=== PATIENT | male | born 1960 | race Caucasian/White ===

== ENCOUNTER 2020-03-04 00:25 | Outpatient (CLI) | payer OTHER, SELFPAY ==
[2020-03-04 22:35] LABS: SARS-CoV-2 RNA PCR Negative
== END 2020-03-04 00:26 | disposition home or self-care (01) ==
LOC: ANHCOVIDDT 00:25
PROVIDERS: PCP Family Medicine; Visit Provider Internal Medicine Gastroenterology
DX: Z01.818 Encounter for other preprocedural examination (principal); Z11.59 Encounter for screening for other viral diseases
CPT/HCPCS: 87635; C9803; U0003

== ENCOUNTER 2020-03-06 01:17 | Day surgery (SDC) | payer OTHER, SELFPAY ==
[2020-03-03 10:27] VITALS: BMI 31.7
[2020-03-06 12:29] VITALS: BP 128/88; PULSE 66; RESP 18; TEMP 36.1; O2SAT 98; BMI 32.6
--- NOTE | 2020-03-06 12:32 | SUR.PREOP ---
Pt ate lunch and dinner yesterday. Pt drank 2L [place] last night and 2L this am form [id number]. Dr. Malcolm notified as well as anesthesia Dr. Parra. Ok to procede with colonoscopy.
--- NOTE | 2020-03-06 12:35 | WPDANESEPPF ---
Anes - Initial Pre Proc Eval Procedure: Operation Date: 03/06/20 13:30 Proposed Procedures p Screening Colonoscopy - Ulises Juan MD Date/Time: 03/06/20 12:35 Surgeon: Ulises Juan MD Pre Op Diagnosis: Neoplasm Screening Patient Data Age: 59 Gender: M Height: 6 ft Weight: 109.3 kg Last Vital Signs Temp 36.1 C L 03/06/20 12:29 Pulse 66 03/06/20 12:29 Resp 18 03/06/20 12:29 BP 128/88 03/06/20 12:29 Pulse Ox 98 03/06/20 12:29 Allergies Allergy/AdvReac Type Severity Reaction Status Date / Time No Known Allergies Allergy Mild Verified 03/06/20 12:25 Home Medications Medication Instructions Recorded Confirmed Type atorvastatin 40 mg tablet 40 mg PO DAILY 01/21/20 03/03/20 History ezetimibe 10 mg tablet 10 mg PO DAILY 01/21/20 03/03/20 History fluticasone propionate 50 1 spray NASAL BID #19.8 ml 01/21/20 03/03/20 Rx mcg/actuation nasal spray,suspension icosapent ethyl 1 gram capsule 2 gm PO BID 01/21/20 03/03/20 History losartan 25 mg tablet 25 mg PO DAILY 01/21/20 03/03/20 History aspirin 325 mg PO DAILY 03/03/20 03/03/20 History Patient hx anesthesia problems: none Family hx anesthesia problems: none PMFSH Past Medical History Medical History ADHD (attention deficit hyperactivity disorder), inattentive type CHF (congestive heart failure) Colon cancer screening Coronary artery disease without angina pectoris Encounter for prostate cancer screening Encounter for wellness examination in adult Mixed hyperlipidemia Obesity (BMI 30.0-34.9) Seasonal allergic rhinitis Surgical History Surgical History History of quadruple bypass (~2015) Family History Family History Father Diabetes mellitus Grandparent Heart disease Grandparent Heart disease Grandparent Heart disease Social History Social History Smoking packs per day: 1 Smoking cigarettes per day: 20.0 Years smoked: 20 Smoking pack-years: 20.00 Smoking status: Former smoker Alcohol intake: current Drinks per week: 3 Substance use: current Substance use type: marijuana Last use: 6 MONTHS AGO Living arrangements: with family Spiritual care concerns: No Anes - Eval Final PreProcedure Day of Procedure 03/06/20 12:35 Patient weight: obese Heart: regular rate and rhythm Lungs: clear to auscultation Airway: Mallampati scale class II Neurological: alert and oriented Last oral intake: >/= 8 hours ASA classification: III Emergent: no Anesthetic plan: proceed Anesthesia type and monitoring: general GIVS and standard monitoring Informed Consent: The patient's anesthetic plan and its attendant risks and benefits were discussed with the patient/family/POA. Questions were solicited and answers provided to the satisfaction of the patient/family/POA.
[2020-03-06] MEDS: LACTATED RINGERS 1,000 ML 150 ML IV CONT (12:45)
--- NOTE | 2020-03-06 12:59 | PM.HPGS ---
History of Present Illness History of Present Illness Consent: Risks, benefits, and alternatives have been discussed and questions answered. Patient agrees to proceed with procedure. Chief complaint: Neoplasm Screening Narrative: Josef Kyle is a 59 year old male here for screening colonoscopy Review of Systems Constitutional: Constitutional: Denies headache(s) and Denies weakness Eyes: Eyes: Denies blurry vision ENT: Reports Normal hearing present, Denies headache(s) and Denies neck pain Cardiovascular: Cardiovascular: Denies chest pain and Denies dyspnea Respiratory: Respiratory: Denies dyspnea Gastrointestinal: Gastrointestinal: Reports no additional gastrointestinal complaints Genitourinary: Genitourinary: Denies dysuria Musculoskeletal: Musculoskeletal: Denies neck pain Integumentary/Breasts: Skin/Breast: Denies dry skin Neurologic: Reports Normal hearing present, Denies headache(s) and Denies weakness Psychiatric: Psychiatric: Denies anxiety Endocrine: Endocrine: Denies change in body appearance Hematologic/Lymphatic: Hematologic/Lymphatic: Denies easy bleeding Allergic/Immunologic: Allergic/Immunologic: Denies urticaria PMFSH Past Medical History Medical History ADHD (attention deficit hyperactivity disorder), inattentive type CHF (congestive heart failure) Colon cancer screening Coronary artery disease without angina pectoris Encounter for prostate cancer screening Encounter for wellness examination in adult Mixed hyperlipidemia Obesity (BMI 30.0-34.9) Seasonal allergic rhinitis Surgical History Surgical History History of quadruple bypass (~2015) Family History Family History Father Diabetes mellitus Grandparent Heart disease Grandparent Heart disease Grandparent Heart disease Social History Social History Smoking packs per day: 1 Smoking cigarettes per day: 20.0 Years smoked: 20 Smoking pack-years: 20.00 Smoking status: Former smoker Alcohol intake: current Drinks per week: 3 Substance use: current Substance use type: marijuana Last use: 6 MONTHS AGO Living arrangements: with family Spiritual care concerns: No Meds Home Medications and Allergies Home Medications Medication Instructions Recorded Confirmed Type atorvastatin 40 mg tablet 40 mg PO DAILY 01/21/20 03/03/20 History ezetimibe 10 mg tablet 10 mg PO DAILY 01/21/20 03/03/20 History fluticasone propionate 50 1 spray NASAL BID #19.8 ml 01/21/20 03/03/20 Rx mcg/actuation nasal spray,suspension icosapent ethyl 1 gram capsule 2 gm PO BID 01/21/20 03/03/20 History losartan 25 mg tablet 25 mg PO DAILY 01/21/20 03/03/20 History aspirin 325 mg PO DAILY 03/03/20 03/03/20 History Allergies Allergy/AdvReac Type Severity Reaction Status Date / Time No Known Allergies Allergy Mild Verified 03/06/20 12:25 Vital Signs Vital Signs - 24 hr 03/06/20 12:29 Temperature 97 F L Pulse Rate 66 Respiratory Rate 18 Blood Pressure 128/88 Pulse Oximetry 98 Exam Const: General: comfortable and no acute distress HENMT: General nose exam: Normal nares present Eyes: General: appearance normal, both eyes and all related structures Neck: Neck: no JVD Resp: Auscultation: clear to auscultation bilaterally Cardio: Rate: regular rate Rhythm: regular rhythm GI: Inspection: non-distended GI Palp: Yes Soft to palpation Skin: General skin exam: normal color Neuro: General: gait normal Speech: normal speech Extrem: General: normal to inspection Psych: Mental Status: mental status grossly normal Assessment and Plan Assessment and plan (1) Colon cancer screening: Code(s): Z12.11 - Encounter for screening
[2020-03-06 13:21] VITALS: BP 113/69; PULSE 65; RESP 18; O2SAT 98
[2020-03-06 13:31] VITALS: BP 104/59; PULSE 56; RESP 18; O2SAT 98
[2020-03-06 13:41] VITALS: BP 112/78; PULSE 56; RESP 18; O2SAT 98
== END 2020-03-06 13:55 | disposition home or self-care (01) ==
PROVIDERS: PCP Family Medicine; Visit Provider Internal Medicine Gastroenterology
PROC: 0DJD8ZZ Inspection of Lower Intestinal Tract, Via Natural or Artificial Opening Endoscopic (ICD-10-PCS; CPT 45378; principal; 2020-03-06 13:30)
DX: Z12.11 Encounter for screening for malignant neoplasm of colon (principal); D12.3 Benign neoplasm of transverse colon; K57.30 Diverticulosis of large intestine without perforation or abscess without bleeding; I50.9 Heart failure, unspecified; I25.10 Atherosclerotic heart disease of native coronary artery without angina pectoris; E78.2 Mixed hyperlipidemia; E66.9 Obesity, unspecified; J30.2 Other seasonal allergic rhinitis; F90.9 Attention-deficit hyperactivity disorder, unspecified type; Z95.1 Presence of aortocoronary bypass graft; Z87.891 Personal history of nicotine dependence
CPT/HCPCS: 45380; 88305; J2704; J7120

== ENCOUNTER 2022-03-22 08:36 | Outpatient (CLI) | payer BC, SELFPAY ==
--- NOTE | 2022-04-15 19:02 | WPDHOMESLEEP ---
Sleep Study - Home Unattended Date of Study: 03/22/22 Ordering Provider: Vicente Salas MD Interpreting Provider: Susan Gallego, DO Home Sleep Study Type: Watch PAT Height: 1.83 m Weight: 99.79 kg Body Mass Index: 29.8 Neck Circumference (inches): 16 [place]: 3 Reason for Sleep Study Daytime hypersomnia Sleep History The patient is a 61 year with coronary artery disease, hyperlipidemia seasonal allergies and history of quadruple bypass that had a sleep study ordered by his primary care for evaluation of sleep apnea. The patient denies awakening from sleep short of breath. He denies awakening at night with heartburn, belching or cough. He constantly snores but it is really loud enough that others complain. He rarely has trouble sleeping when he has a cold. He denies waking up gasping for air throughout the night. He denies having breathing problems at night observed by himself or others. He occasionally sweats excessively at night. He denies having heart palpitations or irregular heartbeats during the night. He denies falling asleep during the day and while driving. He denies sleep paralysis and cataplexy. He denies having trouble at school or work due to sleepiness. He rarely experiences vivid dreamlike scenes upon awakening or falling asleep. He denies feeling afraid of going to sleep. He occasionally has nightmares and occasionally remembers his dreams. He frequently has thoughts racing through his mind. He denies feeling sad, depressed or anxious. He rarely has muscular tension. He occasionally notices parts of his body jerk. He frequently kicks during the night. He occasionally has crawling and aching feelings in his legs but never has leg pain during the night. He frequently grinds his teeth during sleep but never awakens with a morning jaw pain. He is rarely bothered by pain during the day and rarely awakened by pain during the night. He denies waking up feeling stiff in the morning. He denies waking up with sore or achy muscles. He denies waking up with pain in the neck, spine or other joints. He goes to bed at 9:00 p.m. on weekdays. He does not have a set bedtime on the weekends. It takes him a minimum of 30 minutes to fall asleep. He wakes up 1-3 times throughout the night to urinate. He he is able to fall back asleep immediately. He wakes up between 7-8 a.m. on both weekdays and weekends. He typically gets at least 8 hours of sleep per night. He currently lives with his and son. He does not consume any caffeinated beverages within 2 hours of bedtime. He does not engage in physical exercise before bedtime. He will occasionally [place] before falling asleep. He denies watching television before falling asleep. He denies taking naps in the afternoon or the evening. He drinks 2-3 cups of caffeinated beverage per day. He will drink a few drinks every couple weeks. He is a former smoker. He denies recreational drug use. [facility] Past Medical History Medical History Abscess ADHD (attention deficit hyperactivity disorder), inattentive type BMI 29.0-29.9,adult BMI 30.0-30.9,adult BMI 32.0-32.9,adult CHF (congestive heart failure) Colon cancer screening Coronary artery disease without angina pectoris Encounter for prostate cancer screening Encounter for wellness examination in adult Hypersomnia (~02/15/22) Male erectile dysfunction, unspecified Mixed hyperlipidemia Obesity (BMI 30.0-34.9) Overweight (BMI 25.0-29.9) Polyp of colon (03/06/20) 3 mm polyp of the transverse colon with recheck in 5 years 03/06/2020 Seasonal allergic rhinitis Skin tag Surgical History Surgical History History of quadruple bypass (~2015) Family History Family History Father Diabetes mellitus Grandparent Heart disease
[2022-04-15 19:11] VITALS: BMI 29.8
--- NOTE | 2022-07-28 14:14 | SLEEP ---
pt did not wish to recieve machine d/t high out of pocket cost
== END 2022-03-28 08:53 | disposition home or self-care (01) ==
PROVIDERS: PCP Family Medicine; Visit Provider Family Medicine
DX: G47.33 Obstructive sleep apnea (adult) (pediatric) (principal); G47.10 Hypersomnia, unspecified; E78.5 Hyperlipidemia, unspecified; I50.9 Heart failure, unspecified; I25.10 Atherosclerotic heart disease of native coronary artery without angina pectoris; F90.0 Attention-deficit hyperactivity disorder, predominantly inattentive type
CPT/HCPCS: 95800